=== PATIENT | male | born 1945 ===

== ENCOUNTER 2024-04-29 10:23 | Outpatient (REF) | payer MEDICARE, MEDICAID, SELFPAY ==
--- NOTE | 2024-04-29 13:53 | MHC.AU.MED ---
Medical Clearance for Hearing Instrumentation Date: 04/29/24 Patient Name: Jay Parson Date of : 1945 Primary Care Provider: Dr Russell Esteves We have seen your patient on 04/29/24 and have determined that they are a candidate for amplification (See accompanying report). Specifically, they would benefit from: Hearing aid use in both ears There is a statute that addresses Medical Evaluation Requirements prior to fitting a patient with a hearing aid. According to [place] statute [facility] CMR:6.03(1), (a) General. Except as provided in 265 CMR 6.03(1)(b), a shearing machine tender shall not sell a hearing aid unless the prospective user has presented to the shearing machine tender a written statement signed by a licensed physician that states that the patient's hearing loss has been medically evaluated and the patient may be considered a candidate for a hearing aid. The medical evaluation must have taken place within the preceding six months. Please note: Due to the [place] Statute referenced above, we cannot accept a signature other than that of a licensed physician. LANE ATTENDANT and [place] signatures cannot be accepted. I am in agreement with the above recommendation. There is no medical contraindication for hearing instrumentation. Physician Signature Date Physician Name (Printed)
== END 2024-04-29 10:24 | disposition home or self-care (01) ==
LOC: HO.SH 10:23
PROVIDERS: Visit Provider Nurse Practitioner Family
DX: Z01.118 Encounter for examination of ears and hearing with other abnormal findings (principal); Z46.1 Encounter for fitting and adjustment of hearing aid; H90.3 Sensorineural hearing loss, bilateral
CPT/HCPCS: 92557; 92591

== ENCOUNTER 2024-08-16 15:33 | Outpatient (REF) | payer MEDICARE, MEDICAID, SELFPAY ==
--- OUTSIDE RECORDS SUMMARY | 2024-08-16 17:54 | XMS_ITS | Continuity of Care Document ---
Author Organization [facility] Address [address] [place] [address] Phone [phone] Social History Type Date Description Comments Sex Unknown Medical Devices Description No Information Available Encounters Description No Information Available Assessments Description No Information Available Plan of Treatment No Information Available Functional Status Description No Information Available Mental Status Description No Information Available Referrals Description No Information Available
== END 2024-08-16 15:34 | disposition home or self-care (01) ==
LOC: HO.HAP 15:33
PROVIDERS: Visit Provider Family Medicine
DX: Z46.1 Encounter for fitting and adjustment of hearing aid (principal); H90.3 Sensorineural hearing loss, bilateral
CPT/HCPCS: V5011; V5020; V5160; V5261

== ENCOUNTER 2024-10-07 15:05 | Outpatient (REF) | payer MEDICARE, MEDICAID, SELFPAY ==
--- NOTE | 2024-10-07 15:23 | MHC.AU.HA3 ---
Hearing Instrument Follow-Up- Binaural Date of Visit: 10/07/24 Right Ear: Jeremiah, , Color, Serial Number: [id number] [id number] [employer] [id number] Node Js Developer Repair Warranty: 09/07/2027 Node Js Developer Loss and Damage Warranty: 09/07/2027 [facility] Service Plan: 08/16/25 Battery Size: Rechargeable Paint Stockman/Slim Tube: 2M Earmold/Dome/CShell/SlimTip:sm power Type of Wax Guard: cerustop Dispensed By: [facility] Date of Fittin08/16/24 Left Ear: Jeremiah, , Color, Serial Number: Keerthi [id number] [id number] Node Js Developer Repair Warranty: 09/07/2027 Node Js Developer Loss and Damage Warranty: 09/07/2027 [facility] Service Plan: 08/16/25 Battery Size: Rechargeable Paint Stockman/Slim Tube: 2M Earmold/Dome/CShell/SlimTip: sm power Type of Wax Guard: cerustop Dispensed By: [facility] Date of Fittin08/16/24 Follow-Up Summary: Seen for follow up. Reports satisfaction with the hearing aids. Notes he can hear the birds, turn the tv down, hear his family better. Reports feeling that he has gotten used to wearing the hearing aids. Reports he has performed hearing aid maintenance on his own without issue. Recommendations: Recommendations: Hearing instrument follow-up or maintenance as needed. Diagnosis Code(s): Primary Diagnosis: H90.3 Bilateral Sensorineural Hearing Loss Signature: Provider: Daija Goldstein, [facility]
--- OUTSIDE RECORDS SUMMARY | 2024-10-07 16:44 | XMS_ITS | Clinical Summary ---
Author Organization [facility] Address [address] [place] [phone] Phone Care Team Providers Care Casing Running Machine Tender Name Role Phone Esteves, Gary Primary Care Provider [phone] Active Problems Problem Noted Date Diagnosed Date Peripheral vascular disease, unspecified 024 Social History Tobacco Use Types Packs/Day Years Used Date Smoking Tobacco: Never Assessed Sex and Gender Information Value Date Recorded Sex Assigned at Not on file Legal Sex Male 11:39 AM EDT Gender Identity Not on file Sexual Orientation Not on file Last Filed Vital Signs Vital Sign Reading Time Taken Comments Blood Pressure 140/70 06/01/2024 11:33 AM EDT Pulse 72 06/01/2024 11:33 AM EDT Temperature - - Respiratory Rate - - Oxygen Saturation - - Inhaled Oxygen Concentration - - Weight 79.8 kg (176 lb) 06/01/2024 11:33 AM EDT Height 185.4 cm (6' 1 ) 06/01/2024 11:33 AM EDT Body Mass Index 23.22 06/01/2024 11:33 AM EDT Plan of Treatment Health Maintenance Due Date Last Done Comments Diabetes: Annual GFR (Glomerular Filtration Rate) 1945 Diabetes: Annual Foot Exam 11/11/1957 Diabetes: Annual Retina Eye Exam 11/11/1957 Pneumococcal Vaccine: 50+ Years (1 of 2 - PCV) 11/11/1966 COVID-19 Vaccine (2023- season) 2024 06/11/2023, 06/03/2021, 11/09/2020 Cholesterol Screening (Lipid Panel) 05/11/2024 Depression Screening 05/11/2024 Falls Risk Assessment 05/11/2024 Hepatitis C Screening 05/11/2024 Medicare Annual Wellness Visit 05/11/2024 Social Influencers of Health Screening 05/11/2024 Diabetes: Annual Urine Albumin-Creatinine Ratio (uACR) 06/04/2024 Diabetes: Blood Sugar Control Test (HGBA1C) 06/04/2024 Hypertension/CHF/CAD Annual BMP Blood Test 06/04/2024 DTaP,Tdap,and Td Vaccines (2 - Td or Tdap) 04/16/2031 04/16/2021 Zoster Vaccines Completed 04/21/2022, 02/13/2022 RSV Immunization Patients 60+ Years Old Completed 06/11/2023 Influenza Vaccine Completed 04/11/2024, , 04/21/2022, Additional history exists HIB Vaccines Aged Out No longer eligi ble based on patient's age to complete this topic HPV Vaccines Aged Out No longer eligi ble based on patient's age to complete this topic Hepatitis A Vaccines Aged Out No long er eligible based on patient's age to complete this topic Hepatitis B Vaccines Aged Out No long er eligible based on patient's age to complete this topic IPV Vaccines Aged Out No longer eligi ble based on patient's age to complete this topic MMR Vaccines Aged Out No longer eligi ble based on patient's age to complete this topic Meningococcal ACWY Vaccine Aged Out N o longer eligible based on patient's age to complete this topic Meningococcal B Vacine Aged Out No lo nger eligible based on patient's age to complete this topic RSV Immunization Patients Under 20 months Aged Out No longer eligible based on patient's age to complete this topic Varicella Vaccines Aged Out No longer eligible based on patient's age to complete this topic Insurance MEDICARE MEDICAID - [place] Care Teams Casing Running Machine Tender Relationship Specialty Start Date End Date Russell Esteves DO [address] [place] [address] PCP - General 03/07/24
--- OUTSIDE RECORDS SUMMARY | 2024-10-07 16:44 | XMS_ITS | Clinical Summary ---
Author Organization [facility] Address [address] [place] [address] Care Team Providers Care Newspaper Carriers Supervisor Name Role Phone Unavailable Primary Care Provider Unavailabl e Source Comments PLEASE NOTE, if this patient is a minor, it may be UNLAWFUL to discuss sensitive information that is contained in these records (such as FAMILY PLANNING, MENTAL HEALTH or SUBSTANCE ABUSE) with the minor patient's parent or other person without the patient's specific authorization.[facility] Medications No known medications Active Problems Problem Noted Date Diagnosed Date Hypertension 09/17/2023 Diabetes ([facility]) 09/17/2023 Social History Tobacco Use Types Packs/Day Years Used Date Smoking Tobacco: Never Assessed Social Connections Answer Date Recorded Connectedness 0 04/17/2024 Financial Resource Strain Answer Date R ecorded Financial Resource Strain 0 2022 Stress Answer Date Recorded Stress 0 06/19/2023 Physical Activity Answer Date Recorded Physical Activity 0 06/19/2023 Food Insecurity Answer Date Recorded Food 0 04/28/2024 Transportation Needs Answer Date Record ed Transportation 0 06/19/2023 Housing Stability Answer Date Recorded Housing 0 06/19/2023 Safety and Environment Answer Date Luigi rded Safety 0 06/19/2023 Utilities Answer Date Recorded Utilities 0 06/19/2023 Employment Answer Date Recorded Stress 0 04/17/2024 Sex and Gender Information Value Date Recorded Sex Assigned at Not on file Legal Sex Male 11:54 AM PST Gender Identity Not on file Sexual Orientation Not on file Plan of Treatment Health Maintenance Due Date Last Done Comments Diabetes Foot Exam 1945 Diabetes HbA1c 1945 Diabetes Microalbumin (w/Creatinine) 1945 Hepatitis C Screening 1945 Lipid Screening 1945 Serum Creatinine 1945 Tobacco Screening 1945 Retinopathy Screening 11/11/1960 Annual Preventive Care Visit 11/11/1965 Imm-DTaP/Tdap/Td (1 - Tdap) 11/11/1966 Imm-Pneumococcal 65+ (1 of 2 - PCV) 11/11/1966 Imm-Zoster, Recombinant (1 of 2) 11/11/1997 Falls Prevention 11/11/2012 Btd-CCDXN-36 (1 - 2023- season) 2024 Imm-Influenza (#1) 2024 Alcohol and Drug Screen 08/03/2024 Depression Annual Screen 08/03/2024 Dental Examination 09/19/2024 09/17/2023 Dental FMX/Pano 09/19/2028 09/17/2023 Procedures Procedure Name Priority Date/Time Associated Diagnosis Comments PANORAMIC RADIOGRAPHIC IMAGE Routine 09/17/2023 3:00 PM EST Encounter for dental examination Full COMP ORAL EVALUATION - NEW/ESTABLISHED PATIENT Routine 09/17/2023 3:00 PM EST Encounter for dental examination from Last 3 Months or Most Recently Relevant to Health Maintenance Insurance [place] MEDICA[place] DENTAL
--- OUTSIDE RECORDS SUMMARY | 2024-10-07 16:44 | XMS_ITS ---
Continuity of Care Document (CCD) Created on: October 07, 2024 Jay Parson External Reference #: [id number] : 1945 Sex: Male Author Organization [facility] Address [address] [place] [address] Phone [phone] Social History Type Date Description Comments Sex Unknown Medical Devices Description No Information Available Encounters Description No Information Available Assessments Description No Information Available Plan of Treatment No Information Available Functional Status Description No Information Available Mental Status Description No Information Available Referrals Description No Information Available
== END 2024-10-07 15:06 | disposition home or self-care (01) ==
LOC: HO.HAP 15:05
PROVIDERS: Visit Provider Family Medicine
DX: Z13.89 Encounter for screening for other disorder (principal)